=== PATIENT | female | born 1995 | race Two or more races ===

== ENCOUNTER 2018-04-01 20:01 | Emergency (ER) | payer MEDICAID ==
[~2018-04-01] VITALS: Ht 154.9 cm; Wt 41.0 kg
--- NOTE | 2018-04-01 21:00 | NUR ---
PATIETN HERE FOR MASTITIS OF RIGHT BREAST, LARGE LUMP FELT BY PATIENT AND DISCOLORED MILK EXPRESSED BY PATIETN IN SHOWER
--- NOTE | 2018-04-01 21:13 | NUR ---
HR 104
[2018-04-01] MEDS ORDERED: DYN500C PO (21:19)
[2018-04-01 21:51] VITALS: BP 122/68
== END 2018-04-01 21:54 | disposition home or self-care (01) ==
LOC: ER 20:01
DX: N61.0 Mastitis without abscess (principal)
CPT/HCPCS: 99283